=== PATIENT | female | born 1950 | race Two or more races ===

== ENCOUNTER 2018-02-10 09:29 | Emergency (ER) | payer MEDICARE, MEDICAID ==
[2018-02-10] MEDS ORDERED: Acetaminophen TAB* 325 MG PO ONE (10:03)
[2018-02-10 10:06] VITALS: BP 136/78
--- NOTE | 2018-02-10 10:16 | UC ---
Shoulder Pain HPI - HPI Summary HPI Summary: Pt presents with sudden onset of left shoulder pain that began this morning. Pt states that over last 2 days she has been moving many items repariing for holiday dinner at her house. Pt denies chest pain, SOB diaphoresis. Has hx of arthritis in right shoulder. - History of Current Complaint Stated Complaint: (L) ARM COMPLAINT Time Seen by Provider: 02/10/18 09:33 Hx Obtained From: Patient ?: No Onset/Duration: Sudden Onset, Lasting Hours, Still Present Timing: Constant Severity Initially: Moderate Severity Currently: Moderate Pain Intensity: 9 Character: Dull, Aching, Stiffness Aggravating Factor(s): Movement Alleviating Factor(s): Rest Associated Signs And Symptoms: Positive: Negative Related History: Similar Episode/Dx As - arthritis - Risk Factors Non-Orthopedic Risk Factor: Negative DVT Risk Factors: Negative Septic Arthritis Risk Factor: Extremes of Age - Allergies/Home Medications Allergies/Adverse Reactions: Allergies Allergy/AdvReac Type Severity Reaction Status Date / Time No Known Allergies Allergy Verified 07/02/13 10:27 Home Medications: Home Medications Ascorbic Acid TAB* [Vitamin C TAB*] 1 tab PO DAILY 02/10/18 [History Confirmed 02/10/18] Levothyroxine TAB* [Synthroid TAB*] 25 mcg PO DAILY 02/10/18 [History Confirmed 02/10/18] PMH/Surg Hx/FS Hx/Imm Hx Endocrine History: Hypothyroidism Cardiovascular History: Cardiac Disease - Surgical History Surgical History: Yes Surgery Procedure, Year, and Place: b/l oopherectomy, D&C; partial thyroidectomy 1990 - Family History Known Family History: Positive: Cardiac Disease - Social History Occupation: Retired Lives: With Family Alcohol Use: Occasionally Substance Use Type: None Smoking Status (MU): Never Smoked Tobacco Have You Smoked in the Last Year: No Review of Systems Constitutional: Negative Skin: Negative Eyes: Negative ENT: Negative Respiratory: Negative Cardiovascular: Negative Gastrointestinal: Nausea Genitourinary: Negative Motor: Decreased ROM - left shoulder Neurovascular: Negative Musculoskeletal: Arthralgia - left shoulder, Decreased ROM - left shoulder, Myalgia - left shoulder Neurological: Weakness - left shoulder secondary to pain Psychological: Negative Is Patient Immunocompromised?: No All Other Systems Reviewed And Are Negative: Yes Physical Exam Triage Information Reviewed: Yes Appearance: Pain Distress Vital Signs: Initial Vital Signs Temp 98.3 F 02/10/18 09:53 Pulse 73 02/10/18 09:53 Resp 20 02/10/18 09:53 BP 136/78 02/10/18 09:53 Pulse Ox 100 02/10/18 09:53 Vital Signs Reviewed: Yes Eye Exam: Normal ENT Exam: Normal ENT: Positive: Hearing grossly normal Dental Exam: Normal Neck exam: Normal Respiratory Exam: Normal Respiratory: Positive: Normal breath sounds Cardiovascular Exam: Normal Musculoskeletal: Positive: ROM Limited @ - left shoulder, Other: - point tenderness, posterior joint space Neurological Exam: Normal Psychological Exam: Normal Skin Exam: Normal Diagnostics - Radiology No standard instances Radiology Interpretation Completed By: Radiologist - FINDINGS: The bones are in normal alignment. No fracture is seen. There is mild osteoarthritic change in the acromioclavicular joint. IMPRESSION: MILD OSTEOARTHRITIC CHANGE. Shoulder Course/Dx - Differential Dx/Diagnosis Differential Diagnosis/HQI/PQRI: Arthritis, Bursitis, Tendonitis Provider Diagnoses: left shoulder tendonitis Discharge - Sign-Out/Discharge Documenting (check all that apply): Discharge - Discharge Plan Condition: Stable Disposition: HOME Patient Education Materials: Musculoskeletal Pain (ED), Tendinitis (ED) Referrals: Nery Godinez PA [Primary Care Provider] - If Needed Ori Marquez MD [Medical Doctor] - As Soon As Possible - Billing Disposition and Condition Condition: STABLE Disposition: HOME
--- NOTE | 2018-02-10 10:50 | RAD ---
INDICATION: Left shoulder pain. TECHNIQUE: 4 views of the left shoulder were obtained. FINDINGS: The bones are in normal alignment. No fracture is seen. There is mild osteoarthritic change in the acromioclavicular joint. IMPRESSION: MILD OSTEOARTHRITIC CHANGE.
== END 2018-02-10 11:14 | disposition home or self-care (01) ==
LOC: UCCORT 09:29
DX: M75.92 Shoulder lesion, unspecified, left shoulder (principal); X50.9XXA Other and unspecified overexertion or strenuous movements or postures, initial encounter; Y93.E9 Activity, other interior property and clothing maintenance; Y92.009 Unspecified place in unspecified non-institutional (private) residence as the place of occurrence of the external cause; E03.9 Hypothyroidism, unspecified
CPT/HCPCS: 93005; 99212; A9270-GY; G0463

== ENCOUNTER 2024-10-12 05:46 | Observation (INO) ==
[~2024-10-12 05:46] MED LIST: Lidocaine 1% w EPI 1:100,000 MDV 20 ML VIAL ONE; Metoclopramide 5 MG/ML VIAL (10 mg) IV PRN; NS 0.45% 1000 ml BAG 1,000 ML IV SCH; Naloxone 0.4 mg VIAL 0.4 mg/ml 1 ml VIAL IV PRN; Ondansetron 4 mg VIAL 2 MG/ML 2 ml VIAL IV PRN; ceFAZolin 1 GM ADVAN 1 GM ADDV.VIAL IVPB ONE; fentaNYL 100 mcg/2 ml 50 MCG/ML VIAL IV PRN
[2024-10-12] MEDS ORDERED: Chlorhexidine MOUTHWASH 0.12% 15 ML UDC ONE (06:03)
[2024-10-12] MEDS: Buffered Lidocaine 1% SYRIN 1 ml INTRADERM ONE (06:12)
[2024-10-12] MEDS: Scopolamine 1 mg/72hr PATCH TRANSDERM ONE (06:13)
[2024-10-12] MEDS ORDERED: Famotidine IV 10 MG/ML 2 ml VIAL (20 mg) ONE (06:15)
[2024-10-12] MEDS ORDERED: ceFAZolin 2 GM PREMIX 2 GM/50 ML BAG ONE (06:15)
[2024-10-12 06:26] LABS: Rapid COVID-19 Molecular Undetected (Undetected)
[2024-10-12] MEDS: Famotidine IV 10 MG/ML 2 ml VIAL (20 mg) IV SLOW PU ONE (06:29)
[2024-10-12] MEDS: Lactated Ringers 1000 ml BAG 1,000 ML IV SCH ×2 (06:29→10:31)
[2024-10-12] MEDS ORDERED: Glycopyrrolate IV 0.2 MG/ML 1 ML VIAL ONE (06:58)
[2024-10-12] MEDS ORDERED: Dexamethasone IV 4 MG/ML VIAL 1 ml VIAL ONE (06:58)
[2024-10-12] MEDS ORDERED: Ondansetron 4 mg VIAL 2 MG/ML 2 ml VIAL ONE (06:58)
[2024-10-12] MEDS ORDERED: Phenylephrine 40 mcg/mL 10mL (400mcg) SYRINGE ONE (06:58)
[2024-10-12] MEDS ORDERED: Lidocaine 2% PF 5 ML VIAL ONE (06:58)
[2024-10-12] MEDS ORDERED: Propofol 10 MG/ML 20 ML BTL ONE (06:58)
[2024-10-12] MEDS ORDERED: fentaNYL 100 mcg/2 ml 50 MCG/ML VIAL ONE (07:00)
[2024-10-12] MEDS ORDERED: Rocuronium 50 mg VIAL 10 mg/ml 5 ml VIAL (50 mg) ONE (07:01)
[2024-10-12] MEDS ORDERED: Dexmedetomidine 200 mcg/2 ml 2 ml VIAL (200 mcg) ONE (07:43)
[2024-10-12] MEDS ORDERED: Calcium Carb (TUMS) 500 mg CHEW TAB PO PRN (09:04)
[2024-10-12] MEDS ORDERED: Phenol 1.4% Throat Spray BTL MT PRN (09:04)
[2024-10-12] MEDS ORDERED: Benzocaine/Menthol LOZ MT PRN (09:04)
[2024-10-12] MEDS ORDERED: Ondansetron 4 mg VIAL 2 MG/ML 2 ml VIAL IV PRN (09:04)
[2024-10-12] MEDS: Acetaminophen IV 1 GM/100ML 1,000 MG/100 ML BAG IV ONE (12:17)
[2024-10-12] MEDS: Dextran 70/Hypromellose Tears Eye Drops 15 ml BTL (for Artificials Tears) BOTH EYES PRN (20:11)
[2024-10-13] MEDS: Potassium Citrate TAB (NF) 15 MEQ TABLET.ER PO SCH (08:15)
[2024-10-13 09:57] VITALS: BP 115/72
== END 2024-10-13 10:01 | disposition home or self-care (01) ==
LOC: OR 05:46 → SSU 05:46
PROVIDERS: ADMIT Neurological Surgery; ATTEND Neurological Surgery